=== PATIENT | male | born 1975 | race Two or more races ===

== ENCOUNTER → 2017-06-08 | Outpatient (CLI) | payer BC ==
[~2017-06-08] MED LIST: OMNIPAQUE 350 MG/ML, 150 ML BOTTLE ONE
== END | disposition home or self-care (01) ==
LOC: CFH 14:58
PROVIDERS: ATTEND Urology
DX: R10.2 Pelvic and perineal pain (principal); R31.21 Asymptomatic microscopic hematuria; R35.0 Frequency of micturition
CPT/HCPCS: 74178; Q9967